=== PATIENT | female | born 1980 | race Caucasian/White ===

== ENCOUNTER → 2018-03-03 | Emergency (ER) | payer OTHER ==
[~2018-03-03] VITALS: Ht 154.9 cm; Wt 59.0 kg
[~2018-03-03] MED LIST: LEVAQUIN750 MG PO; ULTRAM50 MG; VENTOLIN HFA18 GM
== END | disposition designated cancer center or children's hospital (05) ==
LOC: ER 06:41
DX: R22.0 Localized swelling, mass and lump, head (principal)

== ENCOUNTER 2022-11-05 12:35 | Emergency (ER) | payer OTHER ==
[~2022-11-05] VITALS: Ht 154.9 cm; Wt 56.7 kg
[2022-11-05] MEDS ORDERED: LIPITOR40 M1 PO (12:50)
[2022-11-05] MEDS ORDERED: VENTOLIN HFA18 GM IH (12:51)
[2022-11-05] MEDS ORDERED: DOLOGEN CAPLET1 EACH PO (19:56)
== END 2022-11-05 20:09 | disposition home or self-care (01) ==
LOC: ER 12:35
DX: R10.32 Left lower quadrant pain (principal); Z91.013 Allergy to seafood; Z88.6 Allergy status to analgesic agent; R11.2 Nausea with vomiting, unspecified